=== PATIENT | male | born 1980 ===

== ENCOUNTER 2018-03-21 10:27 | Emergency (ER) | payer OTHER ==
--- NOTE | 2018-03-21 13:52 | UC ---
Throat Pain/Nasal Jonathon HPI - HPI Summary HPI Summary: Patient is a 37-year-old male presenting to the with chief complaint of throat pain 2 days. Denies any fevers, sweats, chills. Denies any sick contacts. History of strep throat many years ago, and none recently. He took 3 tabs of azithromycin of the past day and a half without relief. Denies headache, abdominal pain or other symptoms at this time. Symptoms are aggravated by nothing and alleviated with nothing. Endorses odynophagia and dysphagia. Denies any ear pain or head pain. - History of Current Complaint Chief Complaint: UCRespiratory Stated Complaint: THROAT PAIN Time Seen by Provider: 03/21/18 10:29 Hx Obtained From: Patient Onset/Duration: Sudden Onset Severity: Moderate Pain Intensity: 9 Pain Scale Used: 0-10 Numeric - Epiglottits Risk Factors Epiglottis Risk Factors: Negative - Allergies/Home Medications Allergies/Adverse Reactions: Allergies Allergy/AdvReac Type Severity Reaction Status Date / Time aspirin Allergy Swelling Verified 03/21/18 10:37 Home Medications: Home Medications Azithromycin TAB* [Zithromax TAB (Z-LOR) 250 mg #6 tabs] 250 mg PO DAILY [History Confirmed 03/21/18] PMH/Surg Hx/FS Hx/Imm Hx Previously Healthy: Yes - Surgical History Surgical History: Yes Surgery Procedure, Year, and Place: anthroscopic to lt shoulder - Family History Known Family History: Positive: Unknown - Social History Occupation: Employed Full-time Lives: With Family Alcohol Use: Occasionally Substance Use Type: None Smoking Status (MU): Heavy Every Day Tobacco Smoker Type: Cigarettes Review of Systems Constitutional: Negative Skin: Negative Eyes: Negative ENT: Sore Throat Respiratory: Negative Cardiovascular: Negative Motor: Negative Neurological: Negative Psychological: Negative Is Patient Immunocompromised?: No All Other Systems Reviewed And Are Negative: Yes Physical Exam Triage Information Reviewed: Yes Appearance: Well-Appearing, No Pain Distress, Well-Nourished Vital Signs: Initial Vital Signs Temp 97.4 F 03/21/18 10:32 Pulse 80 03/21/18 10:32 Resp 18 03/21/18 10:32 BP 120/77 03/21/18 10:32 Pulse Ox 100 03/21/18 10:32 Eye Exam: Normal Eyes: Positive: Conjunctiva Clear ENT: Positive: Pharyngeal erythema, Tonsillar swelling, Tonsillar exudate, Uvula midline. Negative: Pharynx normal, TM bulging, TM dull, TM red, Trismus, Muffled voice, Hoarse voice, Dental tenderness, Sinus tenderness Neck: Positive: Supple Respiratory Exam: Normal Respiratory: Positive: Chest non-tender, Lungs clear Cardiovascular Exam: Normal Cardiovascular: Positive: RRR Musculoskeletal Exam: Normal Neurological: Positive: Alert, Muscle Tone Normal Psychological: Positive: Age Appropriate Behavior Skin Exam: Normal Throat Pain/Nasal Course/Dx - Course Course Of Treatment: The patient's evaluated for throat pain. Strep swab obtained and is positive. Physical examination is otherwise benign. Lungs CTA. RRR. There is pharyngeal erythema with bilateral tonsillar exudates. No trismus, no muffled voice. Uvula is midline. There is no signs of peritonsillar abscesses bilaterally. He is given amoxicillin 500 mg twice a day 10 days. Vital signs are stable including blood pressure. - Differential Dx/Diagnosis Provider Diagnoses: Strep throat Discharge - Sign-Out/Discharge Documenting (check all that apply): Discharge/Admit/Transfer - Discharge Plan Condition: Stable Disposition: HOME Prescriptions: Amoxicillin PO (*) [Amoxicillin 500 MG CAP*] 500 mg PO Q12H #20 cap Patient Education Materials: Strep Throat (ED) Referrals: No Primary Care Phys,NOPCP [Primary Care Provider] - Additional Instructions: complete the entire course of abx even if you begin to feel better! amoxicillin twice daily x 10 days wash hands frequently - Billing Disposition and Condition Condition: STABLE Disposition: HOME
== END 2018-03-21 11:13 | disposition home or self-care (01) ==
LOC: UCEAST 10:27
DX: J02.0 Streptococcal pharyngitis (principal); Z88.6 Allergy status to analgesic agent; F17.210 Nicotine dependence, cigarettes, uncomplicated
CPT/HCPCS: 87651; 99202; G0463